=== PATIENT | male | born 1975 | race Caucasian/White ===

== ENCOUNTER 2018-02-17 23:33 | Inpatient (IN) | payer OTHER ==
[2018-02-18] MEDS ORDERED: ZOFRAN ODT PO ONE (00:49)
[2018-02-18] MEDS ORDERED: TYLENOL PO ONE (00:49)
[2018-02-18 01:13] LABS: Basophils # (Auto) 0.1 K/mm3 (0.0-0.1); Basophils % (Auto) 0.4 % (0.0-1.8); Eosinophils % (Auto) 0.2 % (0.0-4.3); Hematocrit 46.6 % (35.5-45.6); Hemoglobin 16.1 gm/dl (11.8-15.2); Lymphocytes # (Auto) 1.4 K/mm3 (1.2-5.4); Lymphocytes % (Auto) 7.2 % (13.4-35.0); Mean Corpuscular HGB Conc 35 % (32-34); Mean Corpuscular Hemoglobin 32 pg (28-32); Mean Corpuscular Volume 93 fl (84-94); Monocytes # (Auto) 0.9 K/mm3 (0.0-0.8); Monocytes % (Auto) 4.9 % (0.0-7.3); Platelet Count 208 K/mm3 (140-440); Red Blood Count 5.01 M/mm3 (3.65-5.03); Red Cell Distribution Width 13.2 % (13.2-15.2)
[2018-02-18 01:28] LABS: Alanine Aminotransferase 100 units/L (7-56); Albumin 4.5 g/dL (3.9-5); BUN/Creatinine Ratio 24; Blood Urea Nitrogen 17 mg/dL (9-20); Calcium 8.9 mg/dL (8.4-10.2); Hemolysis Index 11
[2018-02-18] MEDS ORDERED: TORADOL IV ONE (04:59)
[2018-02-18] MEDS ORDERED: MORPHINE IV ONE (05:28)
--- NOTE | 2018-02-18 05:28 | Emergency Department Report ---
ED Abdominal Pain HPI - General Chief Complaint: Abdominal Pain Stated Complaint: ABD PAIN Time Seen by Provider: 02/18/18 04:55 Source: patient Mode of arrival: Ambulatory Limitations: Language Barrier - History of Present Illness Initial Comments: 42-year-old male comes to the emergency room complaining of abdominal pain times one day with nausea and vomiting. Patient denies any fever or she vomited 1 denies any nausea at this time. Patient reports no alcohol use. Reports that the pain is in the right lower quadrant. He denies any testicular pain or dysuria no penile discharge. Denies any recent unusual foods or unusual untreated water. MD Complaint: abdominal pain -: days(s) (1) Location: RLQ Severity scale (0 -10): 3 Quality: aching, sharp Consistency: intermittent Improves With: nothing Worsens With: movement Associated Symptoms: nausea, vomiting. denies: fever - Related Data Allergies Allergy/AdvReac Type Severity Reaction Status Date / Time No Known Allergies Allergy Unverified 02/18/18 00:43 ED Review of Systems ROS: Stated complaint: ABD PAIN Other details as noted in HPI Constitutional: no symptoms reported Gastrointestinal: abdominal pain, nausea, vomiting. denies: diarrhea, constipation Genitourinary: denies: urgency, dysuria, hematuria, discharge Musculoskeletal: denies: back pain, joint swelling, arthralgia Skin: denies: rash, lesions Neurological: denies: headache, weakness, paresthesias Psychiatric: denies: anxiety, depression ED Past Medical Hx - Past Medical History Previous Medical History?: No - Surgical History Past Surgical History?: No - Social History Smoking Status: Current Every Day Smoker Substance Use Type: Alcohol ED Physical Exam - General Limitations: Language Barrier General appearance: alert, in no apparent distress - Head Head exam: Present: atraumatic, normocephalic - Eye Eye exam: Present: EOMI - ENT ENT exam: Present: mucous membranes moist - Respiratory Respiratory exam: Present: normal lung sounds bilaterally - Cardiovascular Cardiovascular Exam: Present: regular rate, normal rhythm. Absent: systolic murmur, diastolic murmur, rubs, gallop - GI/Abdominal GI/Abdominal exam: Present: soft, tenderness (RLQ), normal bowel sounds, other ( referred pain). Absent: distended - exam: Present: testicular tenderness (mild tenderness to the right testicle) . Absent: scrotal swelling External exam: Present: normal external exam - Extremities Exam Extremities exam: Present: normal inspection, full ROM. Absent: tenderness - Back Exam Back exam: Present: normal inspection, full ROM. Absent: tenderness - Neurological Exam Neurological exam: Present: alert, oriented X3 - Psychiatric Psychiatric exam: Present: normal affect, normal mood - Skin Skin exam: Present: warm, dry, intact, normal color. Absent: rash ED Course Vital Signs 02/18/18 02/18/18 00:41 06:11 Temperature 98.6 F Pulse Rate 65 Respiratory 16 18 Rate Blood Pressure 136/97 O2 Sat by Pulse 99 Oximetry ED Medical Decision Making - Lab Data Result diagrams: 02/18/18 01:00 02/18/18 01:00 - Radiology Data Radiology results: report reviewed FINAL REPORT EXAM: CT ABDOMEN PELVIS W CON HISTORY: right lower quadrant abdominal pain wbc 19.2 TECHNIQUE: CT images are acquired through the Abdomen and Pelvis following intravenous administration of contrast. Transaxial, coronal and sagittal reformations are provided. PRIORS: None FINDINGS: Partially visualized intrathoracic contents are unremarkable. The liver, gallbladder, pancreas, spleen, and adrenal glands are unremarkable. Kidneys show no worrisome lesions, hydronephrosis, or calculi. Urinary bladder is unremarkable. Small and large bowel are normal in caliber. Appendix is dilated up to 8 millimeters, fluid-filled and shows periappendiceal stranding and edema on axial series 2, image 121. No pneumoperitoneum or focal fluid collection to suggest abscess formation. Aorta is normal in course and caliber. Superficial soft tissues are unremarkable. No acute or aggressive appearing skeletal findings. IMPRESSION: Acute appendicitis without evidence of perforation. Dr. Toney discussed findings with at 0528 central Time on 02/18/2018 immediately following the examination. Transcribed By: MB Dictated By: SHEREE TONEY MD Electronically Authenticated By: SHEREE TONEY MD Signed Date/Time: 02/18/18631 DD/ 1 TD/TT: 02/18/18631 - Medical Decision Making Patient has been evaluated by this provider in fast track. CBC CMP and urinalysis ordered CT ordered with contrast IV insertion Morphine 4 mg IV for pain management. Case discussed with Dr. Dixon. Awaiting CT results. @ [address] Sheree Berven to give report that patient has an acute appendicitis without evidence of perforation. Dr. Pimentel was notified of findings he reports patient to be sent to a operating room. Consult placed in orders for . Zosyn 4.5 mg in normal saline at 125 ML 's per hour. Patient has been informed of results a CT as well as plan for surgery. Patient and son verbalized understanding. Critical care attestation.: If time is entered above; I have spent that time in minutes in the direct care of this critically ill patient, excluding procedure time. ED Disposition Clinical Impression: Inflamed acute appendicitis without peritonitis Disposition: DC-01 TO HOME OR SELFCARE Is pt being admited?: Yes Does the pt Need Aspirin: No Condition: Stable Referrals: PRIMARY CARE,MD [Primary Care Provider] - 3-5 Days Forms: Accompanied Note, Work/School Release Form(ED)
--- NOTE | 2018-02-18 06:33 | Cat Scan Report ---
FINAL REPORT EXAM: CT ABDOMEN PELVIS W CON HISTORY: right lower quadrant abdominal pain wbc 19.2 TECHNIQUE: CT images are acquired through the Abdomen and Pelvis following intravenous administration of contrast. Transaxial, coronal and sagittal reformations are provided. PRIORS: None FINDINGS: Partially visualized intrathoracic contents are unremarkable. The liver, gallbladder, pancreas, spleen, and adrenal glands are unremarkable. Kidneys show no worrisome lesions, hydronephrosis, or calculi. Urinary bladder is unremarkable. Small and large bowel are normal in caliber. Appendix is dilated up to 8 millimeters, fluid-filled and shows periappendiceal stranding and edema on axial series 2, image 121. No pneumoperitoneum or focal fluid collection to suggest abscess formation. Aorta is normal in course and caliber. Superficial soft tissues are unremarkable. No acute or aggressive appearing skeletal findings. IMPRESSION: Acute appendicitis without evidence of perforation. Dr. Humphrey discussed findings with at 0528 central Time on 02/18/2018 immediately following the examination.
[2018-02-18] MEDS ORDERED: NACL 0.9% 1000 ML 1,000 ML IV ONE (06:47)
[2018-02-18] MEDS ORDERED: ZOSYN/NS 4.5GM/100ML 4.5 GM/100 ML VIAL IV SCH (07:00)
[2018-02-18 07:19] LABS: Bilirubin,Urine NEG (Negative); Blood,Urine NEG (Negative); Color,Urine Yellow (Yellow); Mucus,Urine FEW /HPF; Protein,Urine <15 mg/dL mg/dL (Negative); Urobilinogen,Urine < 2.0 mg/dL (<2.0); WBC,Urine < 1.0 /HPF (0.0-6.0)
[2018-02-18] MEDS ORDERED: ZEMURON IV ONE (07:22)
[2018-02-18] MEDS ORDERED: XYLOCAINE MPF 2% ONE (07:22)
[2018-02-18] MEDS ORDERED: DILAUDID ONE (07:23)
[2018-02-18] MEDS ORDERED: DIPRIVAN 10 MG/ML IV ONE (07:23)
[2018-02-18] MEDS ORDERED: MARCAINE-EPI 0.5%-1:200,000 INFILTRATI ONE ×2 (07:47→08:50)
[2018-02-18] MEDS ORDERED: BENADRYL ONE (08:25)
[2018-02-18] MEDS ORDERED: QUELICIN ONE (08:25)
[2018-02-18] MEDS ORDERED: ZOFRAN ONE (08:33)
[2018-02-18] MEDS ORDERED: DECADRON ONE (08:33)
[2018-02-18] MEDS ORDERED: BLOXIVERZ ONE (08:33)
[2018-02-18] MEDS ORDERED: ROBINUL ONE (08:33)
--- NOTE | 2018-02-18 08:34 | History and Physical Report ---
ADMITTING DIAGNOSIS: Rule out appendicitis. HISTORY OF PRESENT ILLNESS: The patient is a 42-year-old gentleman who presented to the Emergency Room with recent onset of right lower quadrant abdominal pain, which is progressively getting worse. PAST MEDICAL HISTORY: Negative. PAST SURGICAL HISTORY: Negative. ALLERGIES: No known allergies. MEDICATIONS: No medications. FAMILY HISTORY: Negative. SOCIAL HISTORY: States he drinks significant alcohol. Smokes half a pack a day for approximately 22 years. PHYSICAL EXAMINATION: GENERAL: At this time revealed the patient to be awake, alert, cooperative, in moderate discomfort, but no acute distress. VITAL SIGNS: Shown to be afebrile with a temperature 98.5, blood pressure is 122/77, pulse is 73, respirations 16. HEENT: Pupils are equal and reactive to light and accommodation. Sclerae are nonicteric. NECK: Supple, no thyromegaly or adenopathy. CHEST: Lungs clear to auscultation and percussion. HEART: Normal sinus rate and rhythm. No gross murmurs. ABDOMEN: Examination of the abdomen reveals to be soft. There is localized right lower quadrant tenderness with guarding and rebound. Bowel sounds are hypoactive to absent. EXTREMITIES: Show full range of motion x 4, no edema or cyanosis. NEUROLOGIC: Grossly within normal limits. LABORATORY DATA: Lab work at present includes a CBC, which shows a white count of 19,000, H and H is 16 and 46. Electrolytes are essentially within normal limits. LFTs show a total bilirubin of 0.6, AST of 48, ALT of 100, alkaline phosphatase is 122. RADIOLOGICAL DATA: CT scan of the abdomen has been performed and findings show a dilated appendix with periappendiceal stranding and edema consistent with acute appendicitis. No evidence of perforation. IMPRESSION: 1. At this time is that of a 42-year-old alcoholic male in no other significant medical history. 2. Rule out acute appendicitis. PLAN: To proceed with emergency appendectomy. Risk indication and complications have been reviewed with the patient and family. The patient understands and has signed his consent. JOB# [id number] FP/NTS
[2018-02-18] MEDS ORDERED: DILAUDID IV PRN (08:45)
--- NOTE | 2018-02-18 08:45 | Anesthesia Day of Surgery ---
Anesthesia Day of Surgery - Day of Surgery Patient Examined: Yes Patient H&P Reviewed: Yes Patient is NPO: Yes
--- NOTE | 2018-02-18 08:45 | Anesthesia Consultation ---
Anesthesia Consult and Med Hx Date of service: 02/18/18 - Airway Anesthetic Teeth Evaluation: Good ROM Head & Neck: Adequate Mental/Hyoid Distance: Adequate Mallampati Class: Class II Intubation Access Assessment: Probably Good - Pulmonary Exam CTA: Yes - Cardiac Exam Cardiac Exam: RRR - Pre-Operative Health Status ASA Pre-Surgery Classification: ASA1, Emergency Proposed Anesthetic Plan: General - Pulmonary Hx Smoking: No Hx Asthma: No Hx Respiratory Symptoms: No - Cardiovascular System Hx Hypertension: No Hx Heart Attack/AMI: No - Central Nervous System Hx Seizures: No CVA: No - Endocrine Hx Renal Disease: No Hx Liver Disease: No Hx Insulin Dependent Diabetes: No Hx Thyroid Disease: No - Hematic Hx Anemia: No - Other Systems Hx Obesity: No - Additional Comments Anesthesia Medical History Comments: Presenting with abdominal pain, nausea, vomiting and found to have evidence of acute appendicitis on imaging.
[2018-02-18] MEDS ORDERED: LACTATED RINGERS 1,000 ML IV SCH (09:00)
[2018-02-18] MEDS ORDERED: MORPHINE IV PRN (09:03)
[2018-02-18] MEDS ORDERED: ZOFRAN IV PRN (09:03)
[2018-02-18] MEDS ORDERED: SUBLIMAZE ONE (09:04)
--- NOTE | 2018-02-18 11:10 | Post Anesthesia Evaluation ---
- Post Anesthesia Evaluation Patient Participated: Yes Airway Patent: Yes Stable Respiratory Function: Yes Nausea/Vomiting: No Temp > 96.8F: Yes Pain Manageable: Yes Adequeate Hydration: Yes Anesthesia Complications: No
[2018-02-18] MEDS: D5/0.45NS 1,000 ML IV SCH ×2 (12:18→21:54)
[2018-02-18] MEDS: LEVAQUIN 500MG/100ML 500 MG/100 ML BAG IV SCH (12:18)
--- NOTE | 2018-02-18 13:44 | Operative Report ---
PREOPERATIVE DIAGNOSIS: Rule out acute appendicitis. POSTOPERATIVE DIAGNOSIS: Rule out acute appendicitis. PROCEDURE: Laparoscopic appendectomy. SURGEON: Darek Faustni MD ANESTHESIA: General. ESTIMATED BLOOD LOSS: Minimal. DRAINS: No drains. COMPLICATIONS: None. DESCRIPTION OF PROCEDURE: The patient was taken to the operating room, prepped and draped in usual sterile fashion. Veress needle was inserted and CO2 insufflation begun. A 5 mm trocar was then inserted and camera inserted. All other trocars were inserted under direct visualization. The patient was then placed in a steep Trendelenburg left lateral decubitus position. The cecum was identified and the tenia followed down towards the inflamed appendix. Inflammation of the appendix was confirmed. A Trego was used to grasp the appendiceal tip. Harmonic was used to dissect the mesoappendix. The base of the appendix was then identified. An Endo-VON was used to transect the appendiceal base. The staple line was carefully inspected and noted to be intact with no evidence of bleeding or leakage. The appendix was then placed in an Endopouch and brought out through the infraumbilical port site. Area was then once again carefully inspected and no bleeding noted. The fascia at the umbilicus was then closed with a [id number] 0 Vicryl suture. Once again, the appendectomy site was inspected through the lateral 5 mm port and no bleeding or drainage noted. The two lateral 5 mm ports were removed under direct visualization. The final 5 mm port was used to expel the CO2 and the trocar removed. The skin at all port sites was closed with subcuticular 4-0 Vicryl. A 0.5% Marcaine was infiltrated over the port site for postoperative pain relief. Steri-Strips, 2 x 2 and Tegaderms applied. The appendiceal cultures were also taken. The patient tolerated the procedure well and left OR in stable condition. JOB# [id number] MYRA/LAMBERTO
[2018-02-19 04:47] LABS: Basophils % (Auto) 0.2 % (0.0-1.8); Eosinophils % (Auto) 0.2 % (0.0-4.3); Hemoglobin 13.4 gm/dl (11.8-15.2); Lymphocytes # (Auto) 1.7 K/mm3 (1.2-5.4); Lymphocytes % (Auto) 14.3 % (13.4-35.0); Mean Corpuscular HGB Conc 34 % (32-34); Mean Corpuscular Hemoglobin 32 pg (28-32); Mean Corpuscular Volume 94 fl (84-94); Monocytes # (Auto) 0.9 K/mm3 (0.0-0.8); Platelet Count 188 K/mm3 (140-440); Red Blood Count 4.15 M/mm3 (3.65-5.03); Red Cell Distribution Width 13.5 % (13.2-15.2)
[2018-02-19] MEDS ORDERED: NACL 0.9% 1000 ML 1,000 ML IV ONE (04:52)
[2018-02-19] MEDS: NACL 0.9% 1000 ML 1,000 ML IV SCH ×2 (07:03→23:25)
--- NOTE | 2018-02-19 11:26 | Progress Note ---
Assessment and Plan POD # 1 Pt states "feeling well" + flatus Abd soft. hypoactive BS wbc down. stable attempt cl liq diet continue IV Levaquin Selected Entries 02/19/18 07:34 Temperature 98.5 F Pulse Rate 51 L Respiratory 18 Rate Blood Pressure 112/74 [Left] Laboratory Tests 02/19/18 04:09 WBC 11.7 H Hgb 13.4 Hct 39.0 D Objective Vital Signs - 12hr 02/18/18 02/19/18 02/19/18 23:36 04:42 06:43 Temperature 98.2 F 98.1 F 98.3 F Pulse Rate 56 L 48 L 53 L Respiratory 16 17 17 Rate Blood Pressure 94/47 83/46 Blood Pressure 104/69 [Left] O2 Sat by Pulse 98 100 100 Oximetry 02/19/18 07:34 Temperature 98.5 F Pulse Rate 51 L Respiratory 18 Rate Blood Pressure Blood Pressure 112/74 [Left] O2 Sat by Pulse 99 Oximetry - Labs 02/19/18 04:09 02/18/18 01:00
[2018-02-19] MEDS: LEVAQUIN 500MG/100ML 500 MG/100 ML BAG IV SCH (11:44)
[2018-02-20] MEDS: NACL 0.9% 1000 ML 1,000 ML IV SCH (05:59)
[2018-02-20] MEDS: NORCO 5/325 PO PRN (06:00)
[2018-02-20] MEDS: LEVAQUIN 500MG/100ML 500 MG/100 ML BAG IV SCH (10:34)
--- NOTE | 2018-02-20 11:52 | Progress Note ---
Assessment and Plan Pt feeling well without compl. sohail cl liq diet Abd soft. noted to be bradycardic (appears asymptomatic) advance diet bradycardia w/u as per hospitalist. cardiology consult as per hospitalist if felt required d/c morphine. po norco prn Selected Entries 02/20/18 02/20/18 07:39 11:45 Temperature 99.3 F Pulse Rate 43 L Respiratory 16 Rate Blood Pressure 129/83 Laboratory Tests 02/18/18 02/19/18 01:00 04:09 WBC 19.2 H 11.7 H Objective Vital Signs - 12hr 02/19/18 02/20/18 02/20/18 23:55 04:33 07:39 Temperature 97.8 F 98.1 F 98.2 F Pulse Rate 45 L 44 L 42 L Respiratory 16 16 16 Rate Blood Pressure 117/74 126/78 139/85 O2 Sat by Pulse 97 98 100 Oximetry 02/20/18 11:45 Temperature 99.3 F Pulse Rate 43 L Respiratory Rate Blood Pressure 129/83 O2 Sat by Pulse 98 Oximetry - Labs 02/19/18 04:09 02/18/18 01:00
[2018-02-20] MEDS: D5/0.45NS 1,000 ML IV SCH (14:09)
[2018-02-21] MEDS: D5/0.45NS 1,000 ML IV SCH ×2 (02:59→21:56)
[2018-02-21] MEDS: NORCO 5/325 PO PRN ×2 (06:25→21:52)
--- NOTE | 2018-02-21 09:08 | Consultation ---
History of Present Illness - Reason for Consult Consult date: 02/21/18 h/o alcohol abuse - History of Present Illness 42-year-old male comes to the emergency room complaining of abdominal pain for one day with nausea and vomiting. Patient denied any fever. Ct abdomen /pelvis showed acute appendicitis, GS admitted the patient and he is s/p appendectomy POD #3. Has h/o alcohol abuse irregularly, no sign of withdrawl. Hospitalist service consulted for medical Mx. he also noted to be HR as low as 39/37 on tele w/o any c/o chest pain or SOB. patient tolerating diet, had BM today, no N/V. ROS: Constitutional: no symptoms reported Gastrointestinal: no abdominal pain, no nausea, no vomiting. denies: diarrhea, constipation Genitourinary: denies: urgency, dysuria, hematuria, discharge Musculoskeletal: denies: back pain, joint swelling, arthralgia Skin: denies: rash, lesions Neurological: denies: headache, weakness, paresthesias Psychiatric: denies: anxiety, depression Past History Past Medical History: No medical history Past Surgical History: appendectomy (POD 3) Social history: smoking (5-6 sticks/day), alcohol abuse (drinks during week ends ) Family history: denies: cancer, diabetes, hypertension, stroke Medications and Allergies Allergies Allergy/AdvReac Type Severity Reaction Status Date / Time No Known Allergies Allergy Unverified 02/18/18 00:43 Active Meds: Active Medications Acetaminophen/Hydrocodone Bitart ([place] 5/325) 1 each PO Q4H PRN PRN Reason: Pain, Moderate (4-6) Last Admin: 02/21/18 06:25 Dose: 1 each Piperacillin Sod/Tazobactam Sod (Zosyn/Ns 4.5gm/100ml) 4.5 gm in 100 mls @ 200 mls/hr IV ONCE ASHLEE Last Admin: 02/18/18 07:53 Dose: 200 mls/hr Levofloxacin/Dextrose (Levaquin 500mg/100ml) 500 mg in 100 mls @ 100 mls/hr IV Q24HR ASHLEE; Protocol Last Admin: 02/20/18 10:34 Dose: 100 mls/hr Dextrose/Sodium Chloride (D5/0.45ns) 1,000 mls @ 75 mls/hr IV DIRECT ASHLEE Last Admin: 02/21/18 02:59 Dose: 75 mls/hr Ondansetron HCl (Zofran) 4 mg IV Q4H PRN PRN Reason: N/V unrelieved by Reglan Exam - Constitutional Vitals: Temp Pulse Resp BP Pulse Ox 98.4 F 37 L 18 151/80 99 02/21/18 06:57 02/21/18 06:57 02/21/18 06:57 02/21/18 06:57 02/21/18 06:57 General appearance: Present: no acute distress, well-nourished - EENT Eyes: Present: PERRL ENT: hearing intact, clear oral mucosa - Neck Neck: Present: supple, normal ROM - Respiratory Respiratory effort: normal Respiratory: bilateral: CTA - Cardiovascular Heart Sounds: Present: S1 & S2. Absent: rub, click - Extremities Extremities: pulses symmetrical, No edema Peripheral Pulses: within normal limits - Abdominal General gastrointestinal: Present: soft, non-tender, non-distended, normal bowel sounds - Integumentary Integumentary: Present: clear, warm, dry - Musculoskeletal Musculoskeletal: gait normal, strength equal bilaterally - Psychiatric Psychiatric: appropriate mood/affect, intact judgment & insight - Neurologic Neurologic: CNII-XII intact, moves all extremities Results - Labs CBC & Chem 7: 02/21/18 09:54 02/21/18 09:54 - Imaging and Cardiology CT scan - abdomen: report reviewed Assessment and Plan Acute appendicitis s/p surgery - f/u plan per surgery Sinus bradycardia, normal K level - preserved Ef on 2d echo - EKG with sinus bradycardia - cautious use of narcotics - need outpt cardiology follow up - patient asymptomatic h/o alcohol abuse, counselled, not in withdrawl Tobacco abuse, counselled
--- NOTE | 2018-02-21 10:20 | Discharge Summary ---
Providers - Providers Date of Admission: 02/18/18 09:03 Attending physician: DAMIEN MOORE 02/18/18 06:41 Consult to Physician [CONS] Stat Comment: Practioner Edwina spoke with Dr. [place] @ 0635 Consulting Provider: JAVIER BIRMINGHAM Physician Instructions: Reason For Exam: appendicitis 02/18/18 09:44 Consult to Physician [CONS] Routine Comment: CONSULT COMPLETED Consulting Provider: TERE LOVING Physician Instructions: Reason For Exam: alcoholic med management Primary care physician: INTEGRATION SOFTWARE DEVELOPER Hospitalization Condition: Good Disposition: DC-01 TO HOME OR SELFCARE Core Measure Documentation - Palliative Care Palliative Care/ Comfort Measures: Not Applicable - Core Measures Any of the following diagnoses?: none, history only Exam - Constitutional Vitals: Temp Pulse Resp BP Pulse Ox 98.4 F 37 L 18 151/80 99 02/21/18 06:57 02/21/18 06:57 02/21/18 06:57 02/21/18 06:57 02/21/18 06:57 Plan Activity: other (reg diet. may d/c today if reg diet shoail and cleared by cardiology. no lifting over 5 lbs x 2 wks. rto this wed) Weight Bearing Status: Non-Weight Bearing Diet: regular Wound: keep clean and dry Additional Instructions: aleve I po q 6-8 hrs prn for breakthrough pain Follow up with: PRIMARY CARE, [Primary Care Provider] - 3-5 Days Forms: Accompanied Note, Work/School Release Form(ED)
[2018-02-21 10:23] LABS: Hematocrit 41.5 % (35.5-45.6); Hemoglobin 14.5 gm/dl (11.8-15.2); Mean Corpuscular HGB Conc 35 % (32-34); Mean Corpuscular Hemoglobin 33 pg (28-32); Mean Corpuscular Volume 93 fl (84-94); Platelet Count 212 K/mm3 (140-440); Red Blood Count 4.47 M/mm3 (3.65-5.03); Red Cell Distribution Width 12.8 % (13.2-15.2)
[2018-02-21 10:57] LABS: BUN/Creatinine Ratio 10; Blood Urea Nitrogen 6 mg/dL (9-20); Calcium 8.9 mg/dL (8.4-10.2); Hemolysis Index 11
--- NOTE | 2018-02-21 12:09 | Discharge Summary ---
DISCHARGE DIAGNOSIS: Appendicitis. PROCEDURE WHILE IN HOSPITAL: Laparoscopic appendectomy. HOSPITAL COURSE: The patient is a 42-year-old gentleman who presented to Emergency Room with recent onset of right lower quadrant abdominal pain, which was progressively getting worse. CT scan was consistent with appendicitis. The patient was admitted and underwent laparoscopic appendectomy without incident. His postoperative course has been essentially stable. The patient was kept n.p.o. for approximately 48 hours on IV Levaquin until he began passing flatus. It started on a diet yesterday and has since been advanced to solid diet this morning without incident. The one issue we have noted is that the patient has been extremely bradycardic. Heart rate is down to 37. Hospitalist has been following the patient throughout his hospitalization and cardiac workup is currently in progress. The patient clinically is stable and has no complaints and is eager to be discharged. Again, he has been started on a regular diet this morning. His abdomen is soft and nontender. He is afebrile. The patient will tentatively be discharged once his cardiac workup is completed if he is cleared by Cardiology. He has been instructed to do no heavy lifting or straining and follow up in the office in approximately 1 week. If he is not cleared by Cardiology, then we will keep him here until Cardiology clears him. JOB# [id number] MYRA/LAMBERTO
[2018-02-21] MEDS: LEVAQUIN 500MG/100ML 500 MG/100 ML BAG IV SCH (12:20)
--- NOTE | 2018-02-21 13:42 | Event Note ---
Date: 02/21/18 Patient has discharge order in place. HR at 39. Would recommend get clearance by credit portfolio advisor before discharge.
[2018-02-22] MEDS: LEVAQUIN 500MG/100ML 500 MG/100 ML BAG IV SCH (09:03)
--- NOTE | 2018-02-22 12:15 | Consultation ---
History of Present Illness Consult date: 02/22/18 Requesting physician: DAMIEN MOORE Consult reason: bradycardia History of present illness: The pt is a 42 YO male who presented with complaints of right lower quadrant abdominal pain with nausea and vomiting for 1 day prior to arrival. He was found to have acute appendicitis and subsequently underwent appendectomy on 02/18. He was noted to have sinus bradycardia and thus cardiology has been consulted. On evaluation, he denies any cardiac complaints, including chest pain , SOB, palpitations, diaphoresis, dizziness or syncope. He does not recall any prior diagnosis of bradycardia, although he does not see doctors regularly. He does admit to tobacco use and ETOH use (drinks 6 pack of beer daily). He underwent echo on 02/21 which showed EF 50-55%, no significant valvular abnormalities. Review of telemetry and ECG reveals sinus bradycardia, HR in 30s during sleeping hours and 50s during the daytime, with no bradyarrhythmias or pauses noted. Past History Past Medical History: No medical history Past Surgical History: appendectomy (POD 3) Social history: , lives with family, smoking (5-6 /day), alcohol abuse ( drinks 6 pack of beer daily) Family history: denies: cancer, diabetes, hypertension, stroke Medications and Allergies Allergies Allergy/AdvReac Type Severity Reaction Status Date / Time No Known Allergies Allergy Unverified 02/18/18 00:43 Active Meds: Active Medications Acetaminophen/Hydrocodone Bitart ([place] 5/325) 1 each PO Q4H PRN PRN Reason: Pain, Moderate (4-6) Last Admin: 02/21/18 21:52 Dose: 1 each Piperacillin Sod/Tazobactam Sod (Zosyn/Ns 4.5gm/100ml) 4.5 gm in 100 mls @ 200 mls/hr IV ONCE ASHLEE Last Admin: 02/18/18 07:53 Dose: 200 mls/hr Levofloxacin/Dextrose (Levaquin 500mg/100ml) 500 mg in 100 mls @ 100 mls/hr IV Q24HR ASHLEE; Protocol Last Admin: 02/22/18 09:03 Dose: 100 mls/hr Dextrose/Sodium Chloride (D5/0.45ns) 1,000 mls @ 75 mls/hr IV DIRECT ASHLEE Last Admin: 02/21/18 21:56 Dose: 75 mls/hr Ondansetron HCl (Zofran) 4 mg IV Q4H PRN PRN Reason: N/V unrelieved by Reglan Review of Systems Constitutional: no weight loss, no weight gain, no fever, no chills, no sweats Ears, nose, mouth and throat: no ear pain, no nose pain, no sinus pressure, no sinus pain Cardiovascular: no chest pain, no orthopnea, no palpitations, no rapid/ irregular heart beat, no edema, no syncope, no lightheadedness, no shortness of breath, no dyspnea on exertion, no high blood pressure, no leg edema, no decreased exercise tolerance Respiratory: no cough, no shortness of breath, no dyspnea on exertion, no congestion, no wheezing, no pain on inspiration Gastrointestinal: abdominal pain, nausea, vomiting, no diarrhea, no constipation , no change in bowel habits, no hematemesis, no coffee ground emesis, no BRBPR, no melena, no hematochezia Genitourinary Male: no dysuria, no hematuria, no flank pain, no discharge, no urinary frequency, no urinary hesitancy Musculoskeletal: no neck stiffness, no neck pain, no shooting arm pain, no arm numbness/tingling, no low back pain, no shooting leg pain, no leg numbness/ tingling, no redness of joints Integumentary: other (appendectomy surgical site), no rash, no pruritis, no redness, no sores Neurological: no head injury, no paralysis, no weakness, no parathesias, no numbness, no tingling, no seizures, no syncope Psychiatric: no anxiety Endocrine: no cold intolerance, no heat intolerance Hematologic/Lymphatic: no easy bruising, no easy bleeding, no lymphadenopathy Allergic/Immunologic: no urticaria, no wheezing, no persistent infections Physical Examination Vital Signs Temp Pulse Resp BP Pulse Ox 98.6 F 65 16 136/97 99 02/18/18 00:41 02/18/18 00:41 02/18/18 00:41 02/18/18 00:41 02/18/18 00:41 General appearance: no acute distress HEENT: Positive: PERRL, Normocephaly, Mucus Membranes Moist Neck: Positive: neck supple, trachea midline Cardiac: Positive: Regular Rhythm, S1/S2, Bradycardia Lungs: Positive: clear to auscultation Neuro: Positive: Grossly Intact Abdomen: Positive: Soft, Other (appendectomy surgical site) Skin: Negative: Rash Musculoskeletal: No Pain Extremities: Absent: edema Results 02/21/18 09:54 02/21/18 09:54 - Imaging and Cardiology Echo: report reviewed (02/21 which showed EF 50-55%, no significant valvular abnormalities. ) EKG: report reviewed, image reviewed EKG interpretations - Telemetry EKG Rhythm: Sinus Bradycardia - EKG Sinus rhythms and dysrhythmias: sinus bradycardia Assessment and Plan Review of telemetry and ECG reveals sinus bradycardia, HR in 30s during sleeping hours and 50s during the daytime, with no bradyarrhythmias or pauses noted since admission. Pt is asymptomatic. Obtain thyroid profile. Pending thyroid profile is WNL, pt may discharge home from cardiology standpoint. Can consider further evaluation as outpatient if pt becomes symptomatic. Recommend follow up in our office with Dr. Nino within 2 weeks of hospital discharge ([phone]). The patient has been seen in conjunction with Dr. Nino who agrees with the assessment and plan of care. - Patient Problems (1) Sinus bradycardia Current Visit: Yes Status: Acute (2) Acute appendicitis Current Visit: Yes Status: Acute (3) S/P appendectomy Current Visit: Yes Status: Acute (4) ETOHism Current Visit: Yes Status: Chronic (5) Tobacco use Current Visit: Yes Status: Chronic
[2018-02-22] MEDS: D5/0.45NS 1,000 ML IV SCH (12:19)
[2018-02-22] MEDS: NORCO 5/325 PO PRN (12:22)
--- NOTE | 2018-02-22 13:41 | Progress Note ---
Assessment and Plan Pt status quo. no compl. Abd soft. cardiology eval apperciated cardiac w/u in progress already cleared for d/c from surgical perspective when cleared by cardiology Selected Entries 02/21/18 02/21/18 02/22/18 04:43 06:57 08:20 Temperature 98.4 F 98.2 F Pulse Rate 38 L 37 L Respiratory 18 Rate Blood Pressure 151/80 141/87 02/22/18 12:02 Temperature Pulse Rate 41 L Respiratory Rate Blood Pressure Objective Vital Signs - 12hr 02/22/18 02/22/18 02/22/18 08:19 08:20 12:02 Temperature 98.2 F Pulse Rate 48 L 41 L Respiratory 18 Rate Blood Pressure 141/87 141/87 O2 Sat by Pulse 95 100 Oximetry 02/22/18 12:22 Temperature Pulse Rate Respiratory 18 Rate Blood Pressure O2 Sat by Pulse Oximetry - Labs 02/21/18 09:54 02/21/18 09:54
[2018-02-22 19:49] VITALS: BP 147/74
== END 2018-02-22 20:30 | disposition home or self-care (01) | DRG 343 ==
LOC: ED 23:33 → 3B-SURG 02-18 09:03
PROVIDERS: ADMIT Surgery; ATTEND Internal Medicine
PROC: 0DTJ4ZZ Resection of Appendix, Percutaneous Endoscopic Approach (ICD-10-PCS; principal; 2018-02-18)
DX: K35.80 Unspecified acute appendicitis (principal); R00.1 Bradycardia, unspecified; F10.10 Alcohol abuse, uncomplicated; F17.200 Nicotine dependence, unspecified, uncomplicated; Z71.6 Tobacco abuse counseling; Z71.41 Alcohol abuse counseling and surveillance of alcoholic
CPT/HCPCS: 36415; 74177; 80048; 80053; 81001; 83690; 84439; 84443; 84484; 85025; 85027; 86850; 86900; 86901; 87075; 87116; 88304; 93005; 93010; 93306; 96374; 96375; J0330; J1100; J1170; J1200; J1956; J2270; J2405; J2543; J2704; J2710; J3010; J7030; Q0162; Q9967